=== PATIENT | female | born 1965 | race Caucasian/White ===

== ENCOUNTER 2019-03-07 13:07 | Outpatient (RCR) | payer OTHER, SELFPAY ==
--- NOTE | 2019-03-07 16:20 | PTOPEVAL ---
Thank you for referring this patient to [facility]. Please review, sign, date and return this plan of care ROGELIO. I agree with and certify that the following plan of care is medically necessary. Referring Physician Date Admitting Provider: Attending Provider: Nabil Remy MD Referring Provider: *PT Outpatient Evaluation Start: 03/07/19 13:18 Freq: Status: Active Protocol: Document 03/07/19 13:00 REI (Rec: 03/07/19 16:18 REI [id number]) Therapy Assessment Status Assessment Status Assessment Status Evaluation Evaluation Information Problem Diagnosis right shoulder pain Onset 12/16/18 Subjective Information Pt. 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 She describes pain in the area of the right upper trap and into the anterior right shoulder. She states that pain is constant. She has had therapy in the recent past, but only did a brief stent with little relief. She reports that her goal remains to decrease her right shoulder pain. Diagnostic Tests X-Rays For This Problem Yes MRI For This Problem Yes Previous Treatments Previous Treatments For This Problem PT Prior Level of Function Activity Level (Last 3 Months) Hand Dominance Right Activity of Daily Living Ability Independent Indoor/Home Mobility Independent Community Mobility Independent Stairs Ability Independent Functional Cognition (Planning, Shopping Independent , Taking Medications) Cooking Yes Cleaning Yes Laundry Yes Shopping Yes Driving Yes Pain Assessment Timing of Pain Assessment Timing of Pain Assessment Pre-Treatment Pain Scale Pain Scale Used Numeric (1 - 10) Self Report Pain Assessment Right Shoulder(s) Reported Pain Level 8 Pain Description Aching,Burning Pain Frequency Continuous Current Pain Intensity 8 Lowest Pain Intensity 5 Greatest Pain Intensity 9 Pain Aggravating Factors Exercise/Activity Pain Score Pain Score 8: Self Report Cervical and Lumbar ROM Cervical ROM Cervic
--- NOTE | 2019-03-29 16:45 | PCPTNOTE ---
2/20 Patient cancelled due to being ill JF
== END 2019-04-04 09:34 | disposition home or self-care (01) ==
LOC: CHSPT 13:07
PROVIDERS: PCP Internal Medicine; Visit Provider Internal Medicine
DX: M25.511 Pain in right shoulder (principal)
CPT/HCPCS: 97012; 97014; 97110; 97140; 97161; G0283

== ENCOUNTER 2019-07-24 14:19 | Emergency (ER) | payer OTHER, SELFPAY ==
--- NOTE | ~2019-07-24 | CT_ITS ---
EXAMINATION: CTA chest PE protocol DATE: 07/24/2019 16:11 INDICATION: Shortness of breath and dyspnea on exertion TECHNIQUE: Computed tomography angiography (CTA) of the chest was performed with 100 mL Omnipaque-350 intravenous contrast timed to evaluate the pulmonary arteries. Coronal maximum intensity projection 3D-reconstructions were created by the technologist. The dose-length product (DLP) was 832.75 mGy-cm. Automated exposure control and iterative reconstruction technique were employed. COMPARISON: 04/23/2016 FINDINGS: The pulmonary arteries are well-opacified. There are filling defects in a subsegmental bran ch of the right lower lobe and left upper lobe. There is mild dependent atelectasis. No pathologicall y enlarged thoracic lymph nodes are identified. The heart size is normal. No pleural effusion or pneu mothorax is identified. There is a T12 burst fracture with mild interval worsening. IMPRESSION: 1. Pulmonary emboli in the right lower and left upper lobes. These findings were discussed with Dr. Lisbet Truong MD in the Emergency Department at 1641 hours on 07/24/2019. Reviewed, dictated and finalized at location A. IMPRESSION: 1. Pulmonary emboli in the right lower and left upper lobes. These findings wer e discussed with Dr. Juan Francisco Truong MD in the Emergency Department at 1641 alcira rs on 07/24/2019.
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
[2019-07-24 14:35] VITALS: BP 127/73; PULSE 87; RESP 18; TEMP 36.7; O2SAT 95
--- NOTE | 2019-07-24 14:39 | ED.EXTPRO ---
HPI - Extremity Problem General Chief complaint: Extremity Problem,Nontraumatic Stated complaint: Possible blood clot L lower leg Source: patient Mode of arrival: ambulatory History of Present Illness HPI Narrative: 53 year old developed an intermittent tight sensation in her left medial calf about a week ago. This was associated with tender bumpy line and intermittent painful calf tightness. About 4 days ago the tightness pain and tenderness became constant and worse. Today she rates it as 8/10 and throbbing when standing. It is decreased when laying supine. In the last few days the pain has included the left popliteal area. There has been no thigh tenderness of pain. She denies being immobile, leg trauma, dx. of cancer. She feels like her left calf is swollen. Hx of DVT right leg a year ago. Pt had pain in the same area of left leg. In the last few days she has had shortness of breath with exertion (going up and down stairs). There is no SOB at rest. She denies chest pain. 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 She uses albuterol on rare occasion. Related Data Home Medications Medication Instructions Recorded Confirmed albuterol sulfate [ProAir HFA] 2 puff INHALATION QID PRN 07/24/19 07/24/19 alprazolam 0.5 mg PO DAILY 07/24/19 07/24/19 budesonide-formoterol [Symbicort] 2 puff INHALATION Q12H 07/24/19 07/24/19 cyclobenzaprine 10 mg PO HS 07/24/19 07/24/19 duloxetine 20 mg PO DAILY 07/24/19 07/24/19 famotidine 20 mg PO DAILY 07/24/19 07/24/19 Allergies Allergy/AdvReac Type Severity Reaction Status Date / Time No Known Allergies Allergy Mild Unverified 01/10/03 13:37 codeine AdvReac Intermediate Nausea and Verified 05/27/09 11:00 Vomiting Review of Systems Constitutional: Constitutional: Denies chills and Denies fever(s) Cardiovascular: Cardiovascular: Denies chest pain Respiratory: Respiratory: Reports no additional respiratory complaints Comments: no hemoptysis Gastrointestinal: Gastrointestinal: Denies abdominal pain, Denies nausea and Denies vomiting Comments: no melena. No hx of stomach ulcer or g.i. bleed. Genitourinary: Genitourinary: Denies hematuria and Denies dysuria Musculoskeletal: Musculoskeletal: Denies arthralgias and Denies joint swelling Integumentary/Breasts: Skin/Breast: Denies erythema and Denies rash Psychiatric: Psychiatric: Denies anxiety and Denies depression Hematologic/Lymphatic: Hematologic/Lymphatic: Denies easy bruising Allergic/Immunologic: Allergic/Immunologic: Denies wheezing PMFSH Past Medical History Medical History (Updated 07/25/19 @ 00:00 by Val Andino) Anxiety COPD (chronic obstructive pulmonary disease) Depression Fibromyalgia Family History Family History Other Cerebrovascular accident Family history of alcoholism Family history of arthritis Family history of malignant neoplasm Social History Social History Smoking status: Current every day smoker Alcohol intake: current Exam Const: General: no acute distress and alert Orientation/consciousness: patient oriented x3 HENMT: Mouth: Yes moist mucous membranes Neck: Neck: no lymphadenopathy Chest: Chest palpation & inspection: normal inspection of the chest Resp: Auscultation: wheezes Cardio: Rate: regular rate Rhythm: regular rhythm GI: GI Palp: Yes Soft to palpation, No Tenderness to palpation present (GI), No Guarding due to palpation present (GI) and No Rigid due to palpation Other: no masses : General: Yes no CVA tenderness Skin: Rashes: no rashes Neuro: General: patient oriented x3 Extrem: Other: legs are not swollen or red. No varicose veins. Tender line line of nodules along the proximal 1/3 of the tibia, posterior border. There is no posterior calf tenderness or palpable cord. The circumference of the calfs 10 cm distal to the tibial tuberosity is 36.5 cm on the left, 36 cm on
[2019-07-24 15:15] LABS: Basophils Absolute Auto 0.04 K/mm3 (0.00-0.10); Basophils Percent Auto 0.8 % (0.0-1.0); Eosinophils Absolute Auto 0.23 K/mm3 (0.02-0.50); Eosinophils Percent Auto 4.4 % (1.0-6.0); Hematocrit 42.4 % (35.0-49.0); Hemoglobin 13.9 g/dL (12.0-15.0); Immature Granulocyte Absolute 0.01 K/mm3 (0.00-0.00); Immature Granulocyte Percent A 0.2 % (0.0-0.0); Lymphocytes Absolute Auto 1.49 K/mm3 (1.10-4.50); Lymphocytes Percent Auto 28.5 % (18.0-42.0); Mean Corpuscular HGB Conc 32.8 g/dL (32.0-36.0); Mean Corpuscular Hemoglobin 31.4 pg (27.0-31.0); Mean Corpuscular Volume 95.9 fL (78.0-102.0); Mean Platelet Volume 8.8 fl (9.2-11.8); Monocytes Absolute Auto 0.36 K/mm3 (0.10-0.90); Monocytes Percent Auto 6.9 % (2.0-11.0); Neutrophils Absolute Auto 3.1 K/mm3 (1.7-7.2); Neutrophils Percent Auto 59.2 % (50.0-70.0); Platelet Count Result 238 K/mm3 (150-420); Red Blood Count 4.42 M/mm3 (4.20-5.40); Red Cell Distribution Width 13.3 % (11.6-14.4); White Blood Count 5.2 K/mm3 (4.8-10.8)
[2019-07-24 15:27] LABS: Blood Urea Nitrogen 8 mg/dL (7-18); Calcium 8.6 mg/dL (8.5-10.1); Carbon Dioxide 30 mmol/L (21-32); Chloride 103 mmol/L (98-108); Estimated CRCL calculation 52 ml/min; Estimated Glomerular Filt Rate 53; Glucose 94 mg/dL (70-99); Osmolality Calculated 288 mOsm/kg (285-295); Sodium 140 mmol/L (136-145)
[2019-07-24 15:29] LABS: INR 0.9; Partial Thromboplastin Time 26.3 SEC (22.3-31.6); Prothrombin Time 9.4 Seconds (9.64-11.0)
[2019-07-24 15:30] LABS: D Dimer 1.18 mg/L (0.19-0.50)
[2019-07-24 17:00] VITALS: BP 124/77; PULSE 88; RESP 14; TEMP 36.7; O2SAT 92
[2019-07-24] MEDS: APIXABAN 2.5 MG TABLET 10 MG PO (17:40)
[2019-07-24 17:45] VITALS: PULSE 84; RESP 18; O2SAT 96
--- NOTE | 2019-07-24 17:47 | PC.NURSE ---
Pt to call and schedule doppler of leg, order given to pt.
== END 2019-07-24 17:45 | disposition home or self-care (01) ==
PROVIDERS: Emergency Provider Family Medicine; PCP Internal Medicine
DX: I26.99 Other pulmonary embolism without acute cor pulmonale (principal); M79.662 Pain in left lower leg
CPT/HCPCS: 36415; 71046; 71275; 80048; 85025; 85380; 85610; 85730; 99283; 99284; A9270; Q9965

== ENCOUNTER 2019-07-25 11:46 | Outpatient (CLI) | payer OTHER, SELFPAY ==
--- NOTE | ~2019-07-25 | US_ITS ---
EXAMINATION: US venous doppler [facility] DATE: 07/25/2019 12:21 INDICATION: Left lower limb pain. TECHNIQUE: Grayscale ultrasound images without and with compression and Doppler ultrasound images of the left lower extremity veins were obtained. COMPARISON: None. FINDINGS: The visualized portions of left common femoral vein, profunda (deep) femoral vein, femoral vein, popl iteal vein, peroneal veins, posterior tibial veins, and greater saphenous vein outflow are patent. IMPRESSION: 1. No deep venous thrombosis. Reviewed, dictated and finalized at location A.
== END 2019-07-25 11:47 | disposition home or self-care (01) ==
LOC: CHSIMG 11:48
PROVIDERS: PCP Internal Medicine; Visit Provider Family Medicine
DX: M79.662 Pain in left lower leg (principal)
CPT/HCPCS: 93971

== ENCOUNTER 2019-08-14 22:13 | Emergency (ER) | payer OTHER, SELFPAY ==
--- NOTE | ~2019-08-14 | XR_ITS ---
XR chest 2V 08/14/2019 23:26 Indication: Cough and shortness of breath Procedure: 2 view chest Comparison: Comparison to multiple prior studies sequentially, with oldest reviewed study dated 10/31. Findings: Borderline heart size. The lungs are hyperinflated which is consistent with, but not diagno stic of chronic obstructive pulmonary disease. No focal air space disease, pulmonary edema, pleural e ffusion or suspected pneumothorax. There are chronic wedge compression fractures of T10-T12 with acce ntuated kyphosis at this location. Impression: 1: No acute cardiopulmonary disease. Reviewed, dictated and finalized at location A. Impression: 1: No acute cardiopulmonary disease.
--- NOTE | 2019-08-14 22:23 | ED.EXTPRO ---
HPI - Extremity Problem General Chief complaint: Extremity Problem,Nontraumatic Stated complaint: swelling in knees Time Seen by Provider: 08/14/19 22:15 Source: patient Mode of arrival: ambulatory Limitations: no limitations History of Present Illness HPI Narrative: 53-year-old woman comes in today complaining of bilateral lower extremity swelling. She states that her calves feel tight and she had a bad charliehorse in her lower leg several days ago. She states that she has been short of breath since she was diagnosed with DVT and then while at me to be a little bit worse she also has noticed some wheezing with the change in the weather. She denies chest pain, nausea, vomiting, lightheadedness, palpitations or rapid heart rate. She has no history of coronary artery disease or congestive heart failure. MD Complaint: extremity swelling Onset (ago): day(s) (2) Pain Consistency: constant Location: left, right and lower extremity Radiation: none Context: history of DVT and other ( Recently diagnosed with pulmonary emboli.) Related Data Home Medications Medication Instructions Recorded Confirmed albuterol sulfate [ProAir HFA] 2 puff INHALATION QID PRN 07/24/19 08/14/19 alprazolam 0.5 mg PO DAILY 07/24/19 08/14/19 budesonide-formoterol [Symbicort] 2 puff INHALATION Q12H 07/24/19 08/14/19 cyclobenzaprine 10 mg PO HS 07/24/19 08/14/19 duloxetine 20 mg PO DAILY 07/24/19 08/14/19 famotidine 20 mg PO DAILY 07/24/19 08/14/19 Allergies Allergy/AdvReac Type Severity Reaction Status Date / Time codeine AdvReac Intermediate Nausea and Verified 05/27/09 11:00 Vomiting Review of Systems Constitutional: Constitutional: Denies chills, Denies fever(s) and Denies weakness ENT: Denies dysphagia, Denies nasal congestion and Denies sore throat Cardiovascular: Cardiovascular: Denies chest pain and Denies radiating jaw, neck or arm pain Respiratory: Respiratory: Reports as per HPI, Denies cough, Reports dyspnea and Reports wheezing Gastrointestinal: Gastrointestinal: Denies abdominal pain, Denies nausea and Denies vomiting Musculoskeletal: Musculoskeletal: Denies back pain, Denies arthralgias and Denies joint swelling Integumentary/Breasts: Skin/Breast: Denies pruritus, Denies erythema and Denies rash Neurologic: Denies vertigo, Denies dizziness and Denies syncope Endocrine: Endocrine: Denies polydipsia and Denies polyuria Hematologic/Lymphatic: Hematologic/Lymphatic: Denies easy bleeding and Denies easy bruising Allergic/Immunologic: Allergic/Immunologic: Denies lip swelling and Reports wheezing [facility] Past Medical History Medical History Anxiety COPD (chronic obstructive pulmonary disease) Depression Fibromyalgia Social History Social History Smoking status: Current every day smoker Alcohol intake: current Exam Const: General: no acute distress and alert Nutritional Appearance: obese Orientation/consciousness: patient oriented x3 Limitations: no limitations HENMT: Ears: external ears normal, TM's normal bilaterally and EAC's normal General nose exam: Normal nares present Mouth: Yes moist mucous membranes Throat: posterior oropharynx normal Eyes: Conjunctivae: conjunctivae normal Pupils: Equal, round and reactive pupils present EOM: EOMs intact bilaterally Resp: Effort & Inspection: normal respiratory effort Auscultation: clear to auscultation bilaterally, no rales, no rhonchi and wheezes expiratory wheezes and throughout Cardio: Rate: regular rate Rhythm: regular rhythm Heart sounds: no murmurs GI: GI Palp: Yes Soft to palpation and No Tenderness to palpation present (GI) Skin: General skin exam: normal color, no jaundice and no pallor Rashes: no rashes Neuro: General: patient oriented x3, moves all extremities, no focal motor deficits and CN's II-XI intact bilaterally Speech: normal
[2019-08-14 22:24] VITALS: BP 127/84; PULSE 99; RESP 18; TEMP 36.8; O2SAT 95
--- NOTE | 2019-08-14 22:29 | ECG_ITS ---
Measurements Intervals [place] Rate: 95 P: 55 IN: 122 QRS: 13 QRSD: 84 T: 65 QT: 344 QTc: 433 Interpretive Statements SINUS RHYTHM LOW QRS VOLTAGE IN PRECORDIAL LEADS MINIMAL Q WAVES- INFERIOR LEADS BASELINE ARTIFACT- I, II, III, AVL, AVF, V4-V6 BORDERLINE ECG Electronically Signed On 08-15-2019 7:01:50 CDT by Vel Yepez D.O.
[2019-08-14 22:48] LABS: Basophils Absolute Auto 0.04 K/mm3 (0.00-0.10); Basophils Percent Auto 0.6 % (0.0-1.0); Eosinophils Percent Auto 2.8 % (1.0-6.0); Hematocrit 40.6 % (35.0-49.0); Hemoglobin 13.4 g/dL (12.0-15.0); Immature Granulocyte Absolute 0.02 K/mm3 (0.00-0.00); Immature Granulocyte Percent A 0.3 % (0.0-0.0); Lymphocytes Absolute Auto 1.84 K/mm3 (1.10-4.50); Lymphocytes Percent Auto 26.1 % (18.0-42.0); Mean Corpuscular Hemoglobin 31.8 pg (27.0-31.0); Mean Corpuscular Volume 96.2 fL (78.0-102.0); Mean Platelet Volume 8.9 fl (9.2-11.8); Monocytes Absolute Auto 0.54 K/mm3 (0.10-0.90); Monocytes Percent Auto 7.6 % (2.0-11.0); Neutrophils Absolute Auto 4.4 K/mm3 (1.7-7.2); Neutrophils Percent Auto 62.6 % (50.0-70.0); Platelet Count Result 217 K/mm3 (150-420); Red Blood Count 4.22 M/mm3 (4.20-5.40); Red Cell Distribution Width 13.3 % (11.6-14.4); White Blood Count 7.1 K/mm3 (4.8-10.8)
[2019-08-14 23:07] LABS: BNP 22.4 pg/mL (0-100); Troponin I < 0.02 ng/mL (0.00-0.056)
[2019-08-14 23:30] VITALS: BP 118/79; PULSE 93; RESP 14; O2SAT 99
== END 2019-08-14 23:29 | disposition home or self-care (01) ==
PROVIDERS: Emergency Provider Emergency Medicine; PCP Internal Medicine
DX: R60.0 Localized edema (principal)
CPT/HCPCS: 36415; 71046; 83880; 84484; 85025; 93005; 99283; 99284

== ENCOUNTER 2019-08-15 14:35 | Outpatient (CLI) | payer OTHER, SELFPAY ==
--- NOTE | ~2019-08-15 | US_ITS ---
EXAMINATION: US venous doppler [facility] DATE: 08/15/2019 15:10 INDICATION: Lower limb edema. TECHNIQUE: Grayscale ultrasound images without and with compression and Doppler ultrasound images of the bilateral lower extremity veins were obtained. COMPARISON: Ultrasound 07/25/2019 FINDINGS: The visualized portions of right common femoral vein, profunda (deep) femoral vein, femoral vein, pop liteal vein, peroneal veins, posterior tibial veins, and greater saphenous vein outflow are patent. The visualized portions of left common femoral vein, profunda femoral vein, femoral vein, popliteal v ein, peroneal veins, posterior tibial veins, and greater saphenous vein outflow are patent. IMPRESSION: 1. No deep venous thrombosis. Reviewed, dictated and finalized at location A.
== END 2019-08-15 14:36 | disposition home or self-care (01) ==
LOC: CHSIMG 14:37
PROVIDERS: PCP Internal Medicine; Visit Provider Emergency Medicine
DX: R60.0 Localized edema (principal)
CPT/HCPCS: 93970

== ENCOUNTER 2019-08-28 12:37 | Emergency (ER) | payer OTHER, SELFPAY ==
--- NOTE | ~2019-08-28 | XR_ITS ---
EXAMINATION: XR chest 2V DATE: 08/28/2019 14:20 INDICATION: Shortness of breath. Chest tightness. TECHNIQUE: Frontal and lateral views of the chest were obtained on 3 radiographs. COMPARISON: Chest 2 views 08/14/2019, chest CT 07/24/2019 FINDINGS: The chest demonstrates clear lungs without pneumonia, pleural effusion, or pneumothorax. Th e heart size is normal. There is a chronic burst fracture T12. There are chronic compression fracture s of T10 and T11. IMPRESSION: 1. No acute cardiopulmonary disease. Reviewed, dictated and finalized at location A.
--- NOTE | 2019-08-28 12:43 | ECG_ITS ---
Measurements Intervals [place] Rate: 82 P: 78 OR: 140 QRS: 21 QRSD: 82 T: 54 QT: 352 QTc: 413 Interpretive Statements SINUS RHYTHM VENTRICULAR PREMATURE COMPLEX EARLY PRECORDIAL R/S TRANSITION MINIMAL Q WAVES- INFERIOR LEADS BORDERLINE ECG Electronically Signed On 08-28-2019 13:34:37 CDT by Vel Yepez D.O.
[2019-08-28 12:45] VITALS: BP 115/70; PULSE 86; RESP 17; TEMP 36.8; O2SAT 96
[2019-08-28 13:19] LABS: Basophils Absolute Auto 0.04 K/mm3 (0.00-0.10); Basophils Percent Auto 0.8 % (0.0-1.0); Eosinophils Absolute Auto 0.26 K/mm3 (0.02-0.50); Hematocrit 39.4 % (35.0-49.0); Hemoglobin 13.1 g/dL (12.0-15.0); Immature Granulocyte Absolute 0.01 K/mm3 (0.00-0.00); Immature Granulocyte Percent A 0.2 % (0.0-0.0); Lymphocytes Absolute Auto 1.79 K/mm3 (1.10-4.50); Lymphocytes Percent Auto 34.1 % (18.0-42.0); Mean Corpuscular HGB Conc 33.2 g/dL (32.0-36.0); Mean Corpuscular Hemoglobin 32.3 pg (27.0-31.0); Monocytes Absolute Auto 0.43 K/mm3 (0.10-0.90); Monocytes Percent Auto 8.2 % (2.0-11.0); Neutrophils Absolute Auto 2.7 K/mm3 (1.7-7.2); Neutrophils Percent Auto 51.7 % (50.0-70.0); Platelet Count Result 219 K/mm3 (150-420); Red Blood Count 4.06 M/mm3 (4.20-5.40); Red Cell Distribution Width 13.2 % (11.6-14.4); White Blood Count 5.3 K/mm3 (4.8-10.8)
[2019-08-28 13:32] LABS: Partial Thromboplastin Time 28.2 SEC (22.3-31.6)
[2019-08-28 13:36] LABS: Alanine Aminotransferase 27 U/L (14-59); Alkaline Phosphatase 81 U/L (46-116); Aspartate Amino Transferase 18 U/L (15-37); Bilirubin,Total 0.2 mg/dL (0.00-1.00); Blood Urea Nitrogen 7 mg/dL (7-18); Calcium 8.3 mg/dL (8.5-10.1); Carbon Dioxide 32 mmol/L (21-32); Chloride 104 mmol/L (98-108); Estimated Glomerular Filt Rate 51; Glucose 94 mg/dL (70-99); Osmolality Calculated 288 mOsm/kg (285-295); Sodium 140 mmol/L (136-145); Total Protein 6.5 g/dL (6.4-8.2)
[2019-08-28 13:42] LABS: Troponin I < 0.02 ng/mL (0.00-0.056)
[2019-08-28 14:19] LABS: Add Urine Microscopic? NO; Appearance Urine Clear (Clear); Bilirubin Urine Negative (Negative); Blood Urine Negative (Negative); Color Urine Yellow (Yellow); Glucose Urine UA Negative (Negative); Ketones Urine Negative (Negative); Leukocyte Esterase Ur Negative (Negative); Nitrate Urine Negative (Negative); Protein Urine Negative (Negative); Specific Grav Ur 1.015 (1.010-1.020); Urobilinogen Urine 0.2 mg/dL (0.2-1.0); pH Urine 8.5 (5.0-8.0)
--- NOTE | 2019-08-28 14:19 | ED.GENADULT ---
HPI - General Adult General Chief complaint: Chest Pain Stated complaint: swelling in feet tightness in chest Source: patient Limitations: no limitations History of Present Illness HPI narrative: Pt comes to ED with complaints of SOB, mild chest tightness and generalized swelling. She has had a recent history of PE and starting on eliquis. She came intoday bc she noted swelling in both of her legs and her hands. SHe said the left leg seems sore and points to an area where there is a palpable vericose vein. SHe states that it hadnt been there before. SHe also states she has been wheezing most of the night and just cant seem to bring anything up when she coughs. She is concerned about blood clots, and about the leg swelling. She al;so c/o of tingling in first 2 toes on left foot SHe states they feel more swollen Onset (ago): minute(s) Radiation: non-radiation Severity: mild Pain Consistency: constant Relieving factors: none Exacerbating factors: none Associated symptoms: denies other symptoms Related Data Home Medications Medication Instructions Recorded Confirmed albuterol sulfate [ProAir HFA] 2 puff INHALATION QID PRN 07/24/19 08/28/19 alprazolam 0.5 mg PO DAILY 07/24/19 08/28/19 budesonide-formoterol [Symbicort] 2 puff INHALATION Q12H 07/24/19 08/28/19 cyclobenzaprine 10 mg PO HS 07/24/19 08/28/19 duloxetine 20 mg PO DAILY 07/24/19 08/28/19 famotidine 20 mg PO DAILY 07/24/19 08/28/19 Allergies Allergy/AdvReac Type Severity Reaction Status Date / Time codeine AdvReac Intermediate Nausea and Verified 05/27/09 11:00 Vomiting Review of Systems Review of Systems: All systems reviewed & are unremarkable except as noted in HPI and below Constitutional: Constitutional: Denies chills, Denies fatigue, Denies fever(s) and Denies weakness Eyes: Eyes: Denies change in vision ENT: Denies dysphagia, Denies vertigo, Denies dizziness, Denies epistaxis, Denies nasal congestion and Denies sore throat Cardiovascular: Cardiovascular: Denies chest pain, Denies rapid heart rate, Denies radiating jaw, neck or arm pain and Denies slow heart rate Respiratory: Respiratory: Denies chest congestion, Reports cough, Reports dyspnea and Reports wheezing Gastrointestinal: Gastrointestinal: Reports no additional gastrointestinal complaints Genitourinary: Genitourinary: Reports no additional female genitourinary complaints Comments: decreased urination Musculoskeletal: Comments: generalized swelling Neurologic: Reports system reviewed and no additional complaints, except as documented Psychiatric: Psychiatric: Reports no additional psychiatric complaints Endocrine: Endocrine: Reports no additional endocrine complaints Hematologic/Lymphatic: Hematologic/Lymphatic: Reports no additional hematologic/lymphatic complaints Allergic/Immunologic: Allergic/Immunologic: Reports no additional allergic/immunologic complaints PMFSH Past Medical History Medical History Anxiety COPD (chronic obstructive pulmonary disease) Depression Fibromyalgia Family History Family History Other Cerebrovascular accident Family history of alcoholism Family history of arthritis Family history of malignant neoplasm Social History Social History Smoking status: Current every day smoker Alcohol intake: current Exam Const: General: no acute distress and alert Orientation/consciousness: patient oriented x3 HENMT: Head: normal to inspection Eyes: Conjunctivae: conjunctivae normal Neck: Neck: normal visual inspection Chest: Chest palpation & inspection: normal inspection of the chest Resp: Effort & Inspection: normal respiratory effort Auscultation: clear to auscultation bilaterally Cardio: Rate: regular rate Rhythm: regular rhythm GI: GI Palp: Yes Soft to pal
[2019-08-28 14:50] VITALS: PULSE 78; RESP 20
[2019-08-28] MEDS: ALBUTEROL SULFATE NEB 2.5 MG/3 ML INH INHALATION (14:52)
--- NOTE | 2019-08-28 15:02 | PC.NURSE ---
DR KAPOOR CALLED FOR CONSULT
[2019-08-28 15:03] VITALS: PULSE 80; RESP 20
[2019-08-28] MEDS: FUROSEMIDE 20 MG TABLET PO (15:28)
[2019-08-28 15:43] VITALS: BP 115/84; PULSE 87
== END 2019-08-28 15:46 | disposition home or self-care (01) ==
PROVIDERS: Emergency Provider Emergency Medicine; PCP Internal Medicine
DX: J44.1 Chronic obstructive pulmonary disease with (acute) exacerbation (principal); R60.1 Generalized edema
CPT/HCPCS: 36415; 71046; 80053; 81003; 84484; 85025; 85610; 85730; 93005; 94640; 99284; A9270

== ENCOUNTER 2019-09-13 12:28 | Outpatient (CLI) | payer OTHER, SELFPAY ==
[2019-09-16 01:49] LABS: Anti Cardio Antibody IgM <12 MPL (<=12); Anti Cardiolipin Antibody IgA <11 APL (<=11); Anti Cardiolipin Antibody IgG <14 GPL (<=14)
[2019-09-16 09:34] LABS: Factor VIII Activity 279 % normal (50-180)
[2019-09-17 08:00] LABS: Homocysteine 10.7 umol/L (<10.4)
[2019-09-17 11:18] LABS: Reference Lab Test Name FACTOR V (LEIDEN)
[2019-09-17 11:23] LABS: Protein S Antigen, Free 131 % normal (50-147); Protein S Antigen, Total 115 % normal (70-140)
[2019-09-17 19:19] LABS: APC Ratio 4.4 ratio (>=2.1)
[2019-09-17 20:54] LABS: Hexagonal Phase Confirm Negative (Negative); Lupus dRVVT 1:1 Mix Interpreta Not Indicated; Lupus dRVVT Confirmation Negative (Negative); Lupus dRVVT Screen 69 sec (<=45); PTT-LA Screen 43 sec (<=40)
[2019-09-20 07:22] LABS: Reference Lab Test Name PHOSPHATIDYLSERINE
== END 2019-09-13 12:29 | disposition home or self-care (01) ==
LOC: CHSLAB 12:30
PROVIDERS: PCP Internal Medicine; Visit Provider Internal Medicine
DX: I74.9 Embolism and thrombosis of unspecified artery (principal)
CPT/HCPCS: 36415; 81240; 81241; 81291; 83090; 85240; 85301; 85303; 85305; 85306; 85307; 85597; 85598; 85613; 85730; 86146; 86147; 86148

== ENCOUNTER 2019-12-31 15:47 | Outpatient (CLI) | payer OTHER, SELFPAY ==
[2019-12-31 16:24] LABS: SARS-CoV-2 Ag Negative (Negative)
== END 2019-12-31 15:48 | disposition home or self-care (01) ==
LOC: CHSLAB 15:51
PROVIDERS: PCP Internal Medicine; Visit Provider Internal Medicine
DX: Z20.828 Contact with and (suspected) exposure to other viral communicable diseases (principal)
CPT/HCPCS: 87426

== ENCOUNTER 2020-04-07 10:04 | Outpatient (RCR) | payer OTHER, SELFPAY ==
--- NOTE | 2020-04-07 10:52 | PTOPEVAL ---
Thank you for referring Karin Mcmillan to [facility].? The patient is scheduled to be seen for therapy? ____x/week for ___ weeks. Please review, sign, date and return this plan of care ROGELIO. I agree with and certify that the following plan of care is medically necessary. Referring Physician Date Admitting Provider: Attending Provider: GEORGETTE FAITH Referring Provider: LEATHA Outpatient Evaluation Start: 04/07/20 10:11 Freq: Status: Active Protocol: Document 04/07/20 10:10 [facility] (Rec: 04/07/20 10:51 [facility] [id number]) Therapy Assessment Status Assessment Status Assessment Status Evaluation Outpatient Past Medical History Neurological History Hx Migraine Yes Cardiovascular History Hx Deep Vein Thrombosis Yes Respiratory History Hx Chronic Obstructive Pulmonary Disease Yes (COPD) Gastrointestinal History Hx Appendectomy Yes Musculoskeletal History Hx Orthopedic Surgery Yes: right shoulder Reproductive History Hx Post Menopausal Yes Evaluation Information Problem Diagnosis R shoulder pain Onset 03/20/20 Additional Evaluation Detail quick dash = 81% functionally declined. Subjective Information patient reports she is coming Query Text:As Reported By Patient/ to therapy for pain in the R Family shoulder. she reports she has been having pain in the R shoulder for about 8-9 years. she reports she has a history of 2 surgeries of the R shoulder. she reports she has had pain since the last surgery. she reports she initially had surgery for RTC repair and other clean-up. she reports she then had a frozen shoulder. she reports she has been to therapy since her last surgery. she reports her surgeon has suggested no replacement at this time due to her age. she reports she has had guided injections to the R shoulder. she reports her last injection was on 12/28. Prior Level of Function Comments Additional Prior Level of Function patient reports she has Comments difficulty with doing her hair . she reports she is able to co
--- NOTE | 2020-06-24 13:33 | PCPTNOTE ---
06/24/20 - patient has not been to skilled PT in nearly 2 months. as of this date, she will be DC'd from skilled therapy services due to poor attendance. all progress towards goals will be taken from her most recent evaluation/note.
== END 2020-04-30 16:21 | disposition home or self-care (01) ==
LOC: CHSPT 10:04
PROVIDERS: PCP Internal Medicine
DX: M25.511 Pain in right shoulder (principal)
CPT/HCPCS: 97014; 97110; 97140; 97161; G0283

== ENCOUNTER 2020-07-17 12:46 | Outpatient (CLI) | payer OTHER, SELFPAY ==
--- NOTE | ~2020-07-17 | US_ITS ---
EXAMINATION: US venous doppler LE EXAM DATE: 07/17/2020 13:46 INDICATION: BL Leg edema . TECHNIQUE: Multiple grayscale, color flow and Doppler images of the lower extremity deep venous syste ms bilaterally were obtained and reviewed. Comparison is made to prior examination from 08/15/2019. FINDINGS: Right side: The right common femoral, femoral and profunda veins demonstrate normal color flow, respi ratory variation, augmentation and compressibility. Compressibility, color flow confirmed within the right popliteal, posterior tibial, peroneal, and greater saphenous veins. Left side: The left common femoral, femoral and profunda veins demonstrate normal color flow, respira tory variation, augmentation and compressibility. Compressibility, color flow confirmed within the l eft popliteal, posterior tibial, peroneal, and greater saphenous veins. IMPRESSION: 1. No lower extremity deep venous thrombosis bilaterally. Reviewed, dictated and finalized at location A.
== END 2020-07-17 12:47 | disposition home or self-care (01) ==
LOC: CHSIMG 12:49
PROVIDERS: PCP Internal Medicine; Visit Provider Internal Medicine
DX: R60.0 Localized edema (principal); Z86.718 Personal history of other venous thrombosis and embolism
CPT/HCPCS: 93970

== ENCOUNTER 2020-07-25 16:05 | Outpatient (CLI) | payer OTHER, SELFPAY ==
--- NOTE | ~2020-07-25 | XR_ITS ---
XR chest 2V DATE: 07/25/2020 16:43 INDICATION: Shortness of breath and cough for 2 weeks. Smoker. COPD. TECHNIQUE: PA and lateral views COMPARISON: 08/28/2019 PA and lateral chest FINDINGS: Normal heart size. Mild aortic tortuosity. No hilar or mediastinal enlargement. Moderate bilateral hyperinflation. No pulmonary infiltrate or consolidation, pleural effusion or pulm onary vascular congestion or pneumothorax. Prominent loss of height and anterior wedging of T12, chronic, stable since 08/28/2019. Stable mild anterior wedging of T10 and T11. Diffuse osteopenia. IMPRESSION: Moderate bilateral hyperinflation; no active cardiac pulmonary disease Chronic old fracture deformities at T10-T12 Reviewed, dictated and finalized at location A. IMPRESSION: Moderate bilateral hyperinflation; no active cardiac pulmonary dise ase Chronic old fracture deformities at T10-T12
[2020-07-25 16:33] LABS: Base Excess ABG 5.4 mmol/L (0-2); HCO3 ABG 30.5 mmol/L (23-29); Oxygen Content ABG 19.1 %vol (16.0-22.0); Oxygen Saturation ABG 95.1 % (95-97); Oxyhemoglobin 91.3 % (94-100); PCO2 ABG 45.9 mmHg (35-45); PO2 ABG 70.2 mmHg (80-90); Site Drawn LEFT RADIAL; Total Hemoglobin 14.9 g/dL; pH ABG 7.44 (7.35-7.45)
[2020-07-25 16:34] LABS: Device ROOM AIR; Modified Allen's Test Pass
[2020-07-25 16:37] LABS: Basophils Absolute Auto 0.04 K/mm3 (0.00-0.10); Basophils Percent Auto 0.3 % (0.0-1.0); Eosinophils Absolute Auto 0.05 K/mm3 (0.02-0.50); Eosinophils Percent Auto 0.4 % (1.0-6.0); Hematocrit 45.2 % (35.0-49.0); Hemoglobin 14.6 g/dL (12.0-15.0); Immature Granulocyte Absolute 0.05 K/mm3 (0.00-0.00); Immature Granulocyte Percent A 0.4 % (0.0-0.0); Lymphocytes Absolute Auto 2.11 K/mm3 (1.10-4.50); Lymphocytes Percent Auto 16.7 % (18.0-42.0); Mean Corpuscular HGB Conc 32.3 g/dL (32.0-36.0); Mean Corpuscular Hemoglobin 31.1 pg (27.0-31.0); Mean Corpuscular Volume 96.2 fL (78.0-102.0); Monocytes Percent Auto 7.1 % (2.0-11.0); Neutrophils Absolute Auto 9.5 K/mm3 (1.7-7.2); Neutrophils Percent Auto 75.1 % (50.0-70.0); Platelet Count Result 259 K/mm3 (150-420); Red Cell Distribution Width 13.5 % (11.6-14.4); White Blood Count 12.7 K/mm3 (4.8-10.8)
[2020-07-25 16:40] LABS: Add Urine Microscopic? YES; Appearance Urine Clear (Clear); Bilirubin Urine Negative (Negative); Blood Urine Negative (Negative); Color Urine Yellow (Yellow); Glucose Urine UA Negative (Negative); Ketones Urine Trace (Negative); Leukocyte Esterase Ur Negative (Negative); Nitrate Urine Negative (Negative); Protein Urine Negative (Negative); Specific Grav Ur 1.015 (1.010-1.020)
[2020-07-25 16:44] LABS: Bacteria Urine Trace /hpf; RBC Urine None seen /hpf (0-2); Squamous Epithelial Cell Urine Few /hpf (Few); WBC Urine None seen /hpf (0-3)
[2020-07-25 17:03] LABS: Alanine Aminotransferase 30 U/L (14-59); Albumin Level 3.1 g/dL (3.4-5.0); Alkaline Phosphatase 92 U/L (46-116); Anion Gap 7 mmol/L (8-16); Aspartate Amino Transferase 12 U/L (15-37); Bilirubin,Total 0.2 mg/dL (0.00-1.00); Blood Urea Nitrogen 20 mg/dL (7-18); CRP 0.5 mg/dL (0.0-0.9); Calcium 8.5 mg/dL (8.5-10.1); Carbon Dioxide 33 mmol/L (21-32); Chloride 99 mmol/L (98-108); Creatine Kinase 38 U/L (26-192); Estimated Glomerular Filt Rate 44; Glucose 92 mg/dL (70-99); NT Pro B Type Natriuretic Pept 70 pg/mL (0-125); Osmolality Calculated 290 mOsm/kg (285-295); Potassium 3.9 mmol/L (3.5-5.1); Sodium 139 mmol/L (136-145); Thyroid Stimulating Hormone 2.15 uIU/mL (0.36-3.74); Total Protein 6.8 g/dL (6.4-8.2); Troponin I 4.1 ng/L (0.00-60.4)
== END 2020-07-25 16:06 | disposition home or self-care (01) ==
LOC: CHSLAB 16:08
PROVIDERS: PCP Internal Medicine; Visit Provider Internal Medicine
DX: R06.00 Dyspnea, unspecified (principal); R60.9 Edema, unspecified; J44.9 Chronic obstructive pulmonary disease, unspecified
CPT/HCPCS: 36415; 36600; 71046; 80053; 81001; 82550; 82553; 82805; 83880; 84443; 84484; 85025; 86140

== ENCOUNTER 2020-08-21 17:29 | Outpatient (CLI) | payer OTHER, SELFPAY ==
[2020-08-21 18:30] LABS: Alanine Aminotransferase 36 U/L (14-59); Albumin Level 3.2 g/dL (3.4-5.0); Alkaline Phosphatase 109 U/L (46-116); Anion Gap 9 mmol/L (8-16); Aspartate Amino Transferase 20 U/L (15-37); Bilirubin,Total 0.2 mg/dL (0.00-1.00); Blood Urea Nitrogen 12 mg/dL (7-18); Carbon Dioxide 28 mmol/L (21-32); Chloride 103 mmol/L (98-108); Estimated Glomerular Filt Rate 47; Glucose 113 mg/dL (70-99); Osmolality Calculated 290 mOsm/kg (285-295); Potassium 3.9 mmol/L (3.5-5.1); Sodium 140 mmol/L (136-145); Total Protein 6.9 g/dL (6.4-8.2)
== END 2020-08-21 17:30 | disposition home or self-care (01) ==
LOC: CHSLAB 17:31
PROVIDERS: PCP Internal Medicine; Visit Provider Internal Medicine
DX: R60.0 Localized edema (principal)
CPT/HCPCS: 36415; 80053

== ENCOUNTER 2020-09-06 12:53 | Outpatient (CLI) | payer OTHER, SELFPAY ==
[2020-09-06 14:02] LABS: Alanine Aminotransferase 39 U/L (14-59); Albumin Level 3.6 g/dL (3.4-5.0); Alkaline Phosphatase 111 U/L (46-116); Anion Gap 8 mmol/L (8-16); Aspartate Amino Transferase 30 U/L (15-37); Bilirubin,Total 0.3 mg/dL (0.00-1.00); Blood Urea Nitrogen 10 mg/dL (7-18); Calcium 8.8 mg/dL (8.5-10.1); Carbon Dioxide 35 mmol/L (21-32); Chloride 99 mmol/L (98-108); Estimated Glomerular Filt Rate 45; Glucose 93 mg/dL (70-99); Magnesium 2.1 mg/dL (1.8-2.4); Osmolality Calculated 293 mOsm/kg (285-295); Potassium 3.7 mmol/L (3.5-5.1); Sodium 142 mmol/L (136-145); Total Protein 7.2 g/dL (6.4-8.2)
== END 2020-09-06 12:54 | disposition home or self-care (01) ==
LOC: CHSLAB 12:55
PROVIDERS: PCP Internal Medicine; Visit Provider Internal Medicine
DX: R60.9 Edema, unspecified (principal); Z79.899 Other long term (current) drug therapy
CPT/HCPCS: 36415; 80053; 83735

== ENCOUNTER 2021-03-16 14:24 | Outpatient (CLI) | payer OTHER, SELFPAY ==
[2021-03-16 15:26] LABS: SARS-CoV-2 RNA PCR Positive (Negative)
== END 2021-03-16 14:25 | disposition home or self-care (01) ==
LOC: CHSLAB 14:26
PROVIDERS: PCP Internal Medicine; Visit Provider Internal Medicine
DX: U07.1 COVID-19 (principal); J06.9 Acute upper respiratory infection, unspecified
CPT/HCPCS: C9803; U0003; U0005

== ENCOUNTER 2021-03-17 11:06 | Outpatient (CLI) | payer OTHER, SELFPAY ==
--- NOTE | 2021-03-17 11:20 | PC.NURSE ---
Pt to room 211 amb. A&Ox3. Has on complaints. Infusion plan of care discussed. Consent for infusion signed. Pt has no questions or concerns. Oriented to room. Call duncan in reach. Reminded to call with needs.
[2021-03-17] MEDS: ACETAMINOPHEN 325 MG TABLET 650 MG PO (11:30)
[2021-03-17] MEDS: FAMOTIDINE 20 MG TABLET PO (11:31)
[2021-03-17] MEDS: diphenhydrAMINE HCl CAP 25 MG CAPSULE PO (11:31)
[2021-03-17 11:36] VITALS: BP 126/89; PULSE 85; RESP 20; O2SAT 94
--- NOTE | 2021-03-17 12:39 | PC.NURSE ---
Pt tolerated infusion well. Has no complaints. Discharged to home amb per self.
== END 2021-03-17 11:07 | disposition home or self-care (01) ==
LOC: CHSTREATRM 11:08
PROVIDERS: PCP Internal Medicine; Visit Provider Internal Medicine
DX: U07.1 COVID-19 (principal); J44.9 Chronic obstructive pulmonary disease, unspecified
CPT/HCPCS: A9270; M0247; Q0247

== ENCOUNTER 2021-05-15 13:59 | Outpatient (CLI) | payer OTHER, SELFPAY ==
--- NOTE | ~2021-05-15 | XR_ITS ---
EXAMINATION: XR ribs LT 2V w CXR 2V DATE: 05/15/2021 14:32 INDICATION: Left rib pain below the left breast after tried to pop back TECHNIQUE: Frontal and lateral views of the chest and 3 views of the left ribs were obtained. COMPARISON: Chest radiograph dated FINDINGS: Again seen is a focal kyphosis at the lower thoracic spine with chronic compression fracture with 20% anterior vertebral body height loss at T10, 40% at T11 and 60% at T12. No rib fractures identified. Lungs are clear with no focal airspace opacities, pulmonary edema, pleural effusion or pneumothorax. Heart size is normal with prominent left paracardial fat pad. IMPRESSION: 1. No rib fracture or acute cardiopulmonary disease. 2. Multiple chronic lower thoracic compression fracture with associated kyphosis. Reviewed, dictated and finalized at location [facility]. IMPRESSION: 1. No rib fracture or acute cardiopulmonary disease. 2. Multiple chronic lower thoracic compression fracture with associated kyphosi s.
== END 2021-05-15 14:00 | disposition home or self-care (01) ==
LOC: CHSIMG 14:01
PROVIDERS: PCP Internal Medicine; Visit Provider Nurse Practitioner Family
DX: R07.81 Pleurodynia (principal); R06.02 Shortness of breath
CPT/HCPCS: 71046; 71100

== ENCOUNTER 2021-11-23 13:21 | Outpatient (CLI) | payer OTHER, SELFPAY ==
--- NOTE | ~2021-11-23 | XR_ITS ---
EXAMINATION: XR chest 2V Exam Date/Time: 11/23/2021 13:35 CDT HISTORY: COUGH, DYSPNEA Comparison: 05/15/2021. CTPA 07/24/2019 RESULT: Lines, tubes, and devices: None. Lungs and pleura: Subtle diffuse reticulonodular opacities. Cardiomediastinal silhouette: Stable. Other: No acute osseous or upper abdominal finding. Stable thoracolumbar kyphosis and vertebral body compression fractures. IMPRESSION: Pulmonary opacities may represent bronchiolitis, as can be seen with atypical infection, asthma, aspi ration, and small airways disease. Reviewed, dictated and finalized at location [facility]. IMPRESSION: Pulmonary opacities may represent bronchiolitis, as can be seen with atypical i nfection, asthma, aspiration, and small airways disease.
[2021-11-23 13:52] LABS: Basophils Absolute Auto 0.05 K/mm3 (0.00-0.10); Basophils Percent Auto 0.4 % (0.0-1.0); Eosinophils Absolute Auto 0.12 K/mm3 (0.02-0.50); Hematocrit 48.4 % (35.0-49.0); Hemoglobin 15.8 g/dL (12.0-15.0); Immature Granulocyte Absolute 0.05 K/mm3 (0.00-0.00); Immature Granulocyte Percent A 0.4 % (0.0-0.0); Lymphocytes Absolute Auto 1.56 K/mm3 (1.10-4.50); Lymphocytes Percent Auto 12.6 % (18.0-42.0); Mean Corpuscular HGB Conc 32.6 g/dL (32.0-36.0); Mean Corpuscular Hemoglobin 31.3 pg (27.0-31.0); Mean Corpuscular Volume 95.8 fL (78.0-102.0); Mean Platelet Volume 9.2 fl (9.2-11.8); Monocytes Absolute Auto 0.98 K/mm3 (0.10-0.90); Monocytes Percent Auto 7.9 % (2.0-11.0); Neutrophils Absolute Auto 9.6 K/mm3 (1.7-7.2); Neutrophils Percent Auto 77.7 % (50.0-70.0); Platelet Count Result 287 K/mm3 (150-420); Red Blood Count 5.05 M/mm3 (4.20-5.40); Red Cell Distribution Width 13.5 % (11.6-14.4); White Blood Count 12.4 K/mm3 (4.8-10.8)
[2021-11-23 14:21] LABS: Albumin Level 3.2 g/dL (3.4-5.0); Alkaline Phosphatase 105 U/L (46-116); Anion Gap 6 mmol/L (8-16); Aspartate Amino Transferase 11 U/L (15-37); Bilirubin,Total 0.4 mg/dL (0.00-1.00); Blood Urea Nitrogen 10 mg/dL (7-18); Calcium 9.4 mg/dL (8.5-10.1); Carbon Dioxide 32 mmol/L (21-32); Chloride 98 mmol/L (98-108); Estimated Glomerular Filt Rate 49; Glucose 113 mg/dL (70-99); NT Pro B Type Natriuretic Pept 30 pg/mL (0-125); Osmolality Calculated 282 mOsm/kg (285-295); Potassium 4.5 mmol/L (3.5-5.1); Sodium 136 mmol/L (136-145); Total Protein 8.1 g/dL (6.4-8.2)
[2021-11-23 14:27] LABS: Influenza A QL RT-PCR Negative (Negative); Influenza B QL RT-PCR Negative (Negative); SARS-CoV-2 RNA PCR Negative (Negative)
[2021-11-23 14:32] LABS: Alanine Aminotransferase 18 U/L (14-59)
== END 2021-11-23 13:22 | disposition home or self-care (01) ==
PROVIDERS: PCP Internal Medicine; Visit Provider Internal Medicine
DX: R05.9 Cough, unspecified (principal); R06.00 Dyspnea, unspecified
CPT/HCPCS: 36415; 71046; 80053; 83880; 85025; 87502; C9803; U0003; U0005

== ENCOUNTER 2022-05-24 12:31 | Emergency (ER) | payer OTHER, SELFPAY ==
[2022-05-24] VITALS (18 sets, daily range): BP systolic 123–142; BP diastolic 75–99; PULSE 79–93; RESP 16–20; TEMP 36.3–36.8; O2SAT 90–98
--- NOTE | ~2022-05-24 | XR_ITS ---
Portable chest x-ray Comparison: 11/23/2021 Clinical History: Cough Findings: Lungs are clear, without focal consolidation or pleural effusion. Cardiomediastinal silho uette is stable. Bones and soft tissues are unremarkable. Impression: Normal chest. Reviewed, dictated and finalized at [facility]. Impression: Normal chest.
--- NOTE | 2022-05-24 12:53 | ECG_ITS ---
Measurements Intervals [place] Rate: 85 P: 66 TX: 142 QRS: 19 QRSD: 77 T: 52 QT: 345 QTc: 411 Interpretive Statements SINUS RHYTHM EARLY PRECORDIAL TRANSITION BORDERLINE ECG COMPARED TO ECG 08/28/2019 12:50:24 NO SIGNIFICANT CHANGES Electronically Signed On 05-25-2022 7:16:28 CDT by Dex Zacarias M.D.
--- NOTE | 2022-05-24 12:55 | ED.GENADULT ---
HPI - General Adult General Chief complaint: Shortness of Breath/Dyspnea Stated complaint: shortness of breath and chest pain Time Seen by Provider: 05/24/22 12:48 History of Present Illness HPI narrative: The patient is a 56-year-old woman with history of COPD, fibromyalgia, DVTs and pulmonary emboli, on Eliquis therapy, anxiety, and depression. She still smokes. She does not have oxygen at home and has not needed it. Last COPD exacerbation was several months ago. Not currently on steroids. Yesterday, the patient had a migraine headache that subsequently improved. Today, she had sudden onset of dyspnea for which she used her MDI inhaler. She had a cough along with occasional wheezing. She has lower anterior substernal discomfort described as tightness. This is nonradiating. Does have urinary frequency. No fevers or chills or diaphoresis or rhinorrhea or nasal congestion or back pain. No abdominal pain or nausea or vomiting. No urinary urgency or dysuria no change in her bowel habits. Related Data Home Medications Medication Instructions Recorded Confirmed albuterol sulfate 90 mcg/actuation 2 puff inhalation QID PRN 07/24/19 05/24/22 aerosol inhaler (ProAir HFA) Shortness Of Breath Or Wheezing alprazolam 0.5 mg tablet 0.5 mg PO DAILY 07/24/19 05/24/22 cyclobenzaprine 10 mg tablet 10 mg PO HS 07/24/19 05/24/22 famotidine 20 mg tablet 20 mg PO DAILY 07/24/19 05/24/22 fluticasone furoate 27.5 1 spray intranasal DAILY 05/24/22 05/24/22 mcg/actuation nasal spray,suspension (Flonase Sensimist) Allergies Allergy/AdvReac Type Severity Reaction Status Date / Time codeine AdvReac Intermediate Nausea and Verified 05/24/22 12:52 Vomiting Review of Systems Review of Systems: All systems reviewed & are unremarkable except as noted in HPI and below Constitutional: Constitutional: Reports as per HPI, Reports no additional constitutional complaints, Denies chills, Denies excessive sweating, Denies fatigue, Denies fever(s), Denies headache(s) and Denies weakness Eyes: Eyes: Reports as per HPI, Reports no additional eye complaints, Denies change in vision and Denies photophobia ENT: Reports system reviewed and no additional complaints, except as documented, Reports as per HPI, Denies dysphagia, Denies vertigo, Denies dizziness, Denies headache(s), Denies lip swelling, Denies nasal congestion, Denies sore throat, Denies throat swelling and Denies tongue swelling Cardiovascular: Cardiovascular: Reports as per HPI, Reports no additional cardiovascular complaints, Reports chest pain, Denies syncope, Denies rapid heart rate and Denies dyspnea Respiratory: Respiratory: Reports as per HPI, Reports no additional respiratory complaints, Denies chest congestion, Reports cough, Reports dyspnea and Reports wheezing Gastrointestinal: Gastrointestinal: Reports as per HPI, Reports no additional gastrointestinal complaints, Denies abdominal pain, Denies constipation, Denies dysphagia, Denies diarrhea, Denies nausea and Denies vomiting Genitourinary: Genitourinary: Reports as per HPI, Denies hematuria, Denies urinary frequency, Reports nocturia, Denies dysuria, Denies urinary incontinence and Denies urinary urgency Musculoskeletal: Musculoskeletal: Reports no additional musculoskeletal complaints, Denies back pain, Denies myalgias, Denies arthralgias, Denies joint swelling and Denies numbness Integumentary/Breasts: Skin/Breast: Reports system reviewed and no additional complaints, except as docu, Denies pruritus, Denies erythema, Denies rash and Denies skin ulcer Neurologic: Reports system reviewed and no additional complaints, except as documented, Reports as per HPI, Denies confusion, Denies vertigo, Denies dizziness, Denies syncope, Denies headache(s), Denies focal weakness, Denies numbness and Denies weakness Psychiatric: Psychiatric: Reports as per HPI, Denies anxiety, Denies confusion, Denies depression, Denies homicidal ideation and
[2022-05-24] MEDS: IPRATROPIUM 0.5 MG/ALBUTEROL SULFATE 2.5 MG AMPUL.NEB 3 ML INHALATION (13:01)
[2022-05-24] MEDS: MAGNESIUM SULF 2 GM/WATER 50ML 2 GM/50 ML BAG IVPB (13:09)
[2022-05-24] MEDS: methylPREDNISolone SOD SUCC 125 MG VIAL IV PUSH (13:09)
[2022-05-24 13:15] LABS: Basophils Absolute Auto 0.06 K/mm3 (0.00-0.10); Basophils Percent Auto 0.8 % (0.0-1.0); Eosinophils Absolute Auto 0.21 K/mm3 (0.02-0.50); Eosinophils Percent Auto 2.9 % (1.0-6.0); Hematocrit 48.8 % (35.0-49.0); Hemoglobin 15.3 g/dL (12.0-15.0); Immature Granulocyte Absolute 0.02 K/mm3 (0.00-0.00); Immature Granulocyte Percent A 0.3 % (0.0-0.0); Mean Corpuscular HGB Conc 31.4 g/dL (32.0-36.0); Mean Corpuscular Hemoglobin 30.7 pg (27.0-31.0); Mean Platelet Volume 9.2 fl (9.2-11.8); Monocytes Absolute Auto 0.45 K/mm3 (0.10-0.90); Monocytes Percent Auto 6.3 % (2.0-11.0); Neutrophils Absolute Auto 4.7 K/mm3 (1.7-7.2); Neutrophils Percent Auto 64.7 % (50.0-70.0); Platelet Count Result 248 K/mm3 (150-420); Red Blood Count 4.98 M/mm3 (4.20-5.40); Red Cell Distribution Width 13.3 % (11.6-14.4); White Blood Count 7.2 K/mm3 (4.8-10.8)
[2022-05-24 13:25] LABS: Appearance Urine Clear (Clear); Bilirubin Urine Negative (Negative); Blood Urine Negative (Negative); Color Urine Light Yellow (Yellow); Glucose Urine UA Negative (Negative); Ketones Urine Negative (Negative); Leukocyte Esterase Ur Trace LEU/UL (Negative); Nitrate Urine Negative (Negative); Protein Urine Negative (Negative); Specific Grav Ur 1.015 (1.010-1.020); Urobilinogen Urine 0.2 mg/dL (0.2-1.0)
[2022-05-24 13:37] LABS: Alanine Aminotransferase 22 U/L (14-59); Albumin Level 3.2 g/dL (3.4-5.0); Alkaline Phosphatase 91 U/L (46-116); Anion Gap 6 mmol/L (8-16); Aspartate Amino Transferase < 10 U/L (15-37); Bilirubin,Total 0.2 mg/dL (0.00-1.00); Blood Urea Nitrogen 9 mg/dL (7-18); CRP 1.4 mg/dL (0.0-0.9); Calcium 8.7 mg/dL (8.5-10.1); Carbon Dioxide 34 mmol/L (21-32); Chloride 102 mmol/L (98-108); Estimated CRCL calculation 51 ml/min; Estimated Glomerular Filt Rate 47; Glucose 102 mg/dL (70-99); NT Pro B Type Natriuretic Pept 31 pg/mL (0-125); Osmolality Calculated 292 mOsm/kg (285-295); Potassium 5.2 mmol/L (3.5-5.1); Sodium 142 mmol/L (136-145); Total Protein 7.5 g/dL (6.4-8.2); Troponin I 5.3 ng/L (0.00-60.4)
[2022-05-24 13:51] LABS: Add Urine Microscopic? YES; Bacteria Urine Trace /hpf; Influenza A QL RT-PCR Negative (Negative); Influenza B QL RT-PCR Negative (Negative); RBC Urine None seen /hpf (0-2); SARS-CoV-2 RNA PCR Negative (Negative); Squamous Epithelial Cell Urine Few /hpf (Few); WBC Urine 0-3 /hpf (0-3)
[2022-05-24 13:52] LABS: RSV RNA, RT-PCR Negative (Negative)
== END 2022-05-24 14:32 | disposition home or self-care (01) ==
PROVIDERS: Emergency Provider Emergency Medicine; PCP Internal Medicine
DX: J44.1 Chronic obstructive pulmonary disease with (acute) exacerbation (principal); F41.9 Anxiety disorder, unspecified; F32.A Depression, unspecified; F17.200 Nicotine dependence, unspecified, uncomplicated; Z86.711 Personal history of pulmonary embolism; Z79.01 Long term (current) use of anticoagulants; Z20.822 Contact with and (suspected) exposure to COVID-19
CPT/HCPCS: 36415; 71045; 80053; 81001; 83880; 84484; 85025; 86140; 87637; 93005; 94640; 96365; 96375; 99284; J2930; J3475

== ENCOUNTER 2023-04-15 16:53 | Outpatient (CLI) | payer OTHER, SELFPAY ==
[2023-04-15 17:20] LABS: Basophils Absolute Auto 0.02 K/mm3 (0.00-0.10); Basophils Percent Auto 0.2 % (0.0-1.0); Eosinophils Absolute Auto 0.03 K/mm3 (0.02-0.50); Eosinophils Percent Auto 0.3 % (1.0-6.0); Hematocrit 42.8 % (35.0-49.0); Hemoglobin 14.4 g/dL (12.0-15.0); Immature Granulocyte Absolute 0.04 K/mm3 (0.00-0.00); Immature Granulocyte Percent A 0.3 % (0.0-0.0); Lymphocytes Absolute Auto 2.34 K/mm3 (1.10-4.50); Lymphocytes Percent Auto 20.4 % (18.0-42.0); Mean Corpuscular HGB Conc 33.6 g/dL (32.0-36.0); Mean Corpuscular Hemoglobin 32.1 pg (27.0-31.0); Mean Corpuscular Volume 95.3 fL (78.0-102.0); Mean Platelet Volume 9.1 fl (9.2-11.8); Monocytes Absolute Auto 0.82 K/mm3 (0.10-0.90); Monocytes Percent Auto 7.1 % (2.0-11.0); Neutrophils Absolute Auto 8.2 K/mm3 (1.7-7.2); Neutrophils Percent Auto 71.7 % (50.0-70.0); Platelet Count Result 273 K/mm3 (150-420); Red Blood Count 4.49 M/mm3 (4.20-5.40); Red Cell Distribution Width 13.2 % (11.6-14.4); White Blood Count 11.5 K/mm3 (4.8-10.8)
[2023-04-15 17:21] LABS: Appearance Urine Clear (Clear); Bilirubin Urine Negative (Negative); Blood Urine Negative (Negative); Color Urine Yellow (Yellow); Glucose Urine UA Negative (Negative); Ketones Urine Negative (Negative); Nitrate Urine Negative (Negative); Protein Urine Negative (Negative); Specific Grav Ur 1.025 (1.010-1.020); Urobilinogen Urine 0.2 mg/dL (0.2-1.0)
[2023-04-15 17:26] LABS: Add Urine Microscopic? NO; Leukocyte Esterase Ur Negative (Negative)
[2023-04-15 19:29] LABS: Alanine Aminotransferase 22 U/L (14-59); Albumin Level 3.3 g/dL (3.4-5.0); Alkaline Phosphatase 87 U/L (46-116); Anion Gap 10 mmol/L (8-16); Aspartate Amino Transferase 11 U/L (15-37); Bilirubin,Total 0.3 mg/dL (0.00-1.00); Blood Urea Nitrogen 14 mg/dL (7-18); Calcium 8.8 mg/dL (8.5-10.1); Carbon Dioxide 29 mmol/L (21-32); Chloride 102 mmol/L (98-108); Cholesterol 216 mg/dL (0-200); Estimated Glomerular Filt Rate 58; Glucose 87 mg/dL (70-99); HDL Direct 74 mg/dL (40-60); LDL Cholesterol Calculated 122 mg/dL (<130); Osmolality Calculated 291 mOsm/kg (285-295); Sodium 141 mmol/L (136-145); Thyroid Stimulating Hormone 1.69 uIU/mL (0.36-3.74); Total Protein 6.9 g/dL (6.4-8.2); Triglycerides 101 mg/dL (0-150)
== END 2023-04-15 16:54 | disposition home or self-care (01) ==
PROVIDERS: PCP Internal Medicine; Visit Provider Internal Medicine
DX: Z00.00 Encounter for general adult medical examination without abnormal findings (principal); D68.59 Other primary thrombophilia
CPT/HCPCS: 36415; 80053; 80061; 81003; 84443; 85025